=== PATIENT | female | born 1940 | race Caucasian/White ===

== ENCOUNTER 2018-02-17 11:38 | Outpatient (CLI) | payer MEDICARE, MEDICAID ==
--- NOTE | 2018-02-17 13:19 | Ultrasound Report ---
Reason: IT BAND SYNDROME,RIGHT,RIGHT LEG PAIN Procedure Date: 02/17/2018 Accession Number: [id number] / [id number] Procedure: US - Duplex Ext Veins Right CPT Code: FULL RESULT: EXAM: RIGHT LOWER EXTREMITY VENOUS ULTRASOUND EXAM DATE: 02/17/2018 12:34 PM. CLINICAL HISTORY: IT BAND SYNDROME,RIGHT,RIGHT LEG PAIN. COMPARISON: None. TECHNIQUE: Real-time sonographic vascular imaging was performed by the crate tier through the lower extremity utilizing both color-flow and Doppler spectral analysis. Multiple visitor services representative static images were saved for review. FINDINGS: Common Femoral Vein (CFV): Normal. CFV-GSV Junction: Normal. Profunda Femoral Vein (PFV): Normal. Femoral Vein (FV) Prox: Normal. Femoral Vein (FV) Mid: Normal. Femoral Vein (FV) Dist: Normal. Popliteal Vein: Normal. Posterior Tibial Veins: Normal. Peroneal Veins: Normal. Contralateral Side CFV: Normal. Other: None. IMPRESSION: No evidence for right lower extremity deep venous thrombosis. [facility] The call report notification system was initiated by Dr. Pietro Hughes at 12:50 hrs on 02/17/18. The above findings were discussed with Dr. Jenkins by Dr. Pietro Hughes at 13:18 hrs on 02/17/18.
== END 2018-02-17 11:39 | disposition home or self-care (01) ==
LOC: DI 11:38
PROVIDERS: ATTEND Internal Medicine
DX: M76.31 Iliotibial band syndrome, right leg (principal); M79.604 Pain in right leg; I83.93 Asymptomatic varicose veins of bilateral lower extremities

== ENCOUNTER 2021-12-30 14:01 | Outpatient (CLI) | payer MEDICARE, OTHER, MEDICAID ==
[2021-12-30 17:50] LABS: BASOPHILS % (AUTO) 1.1 %; EOSINOPHILS # (AUTO) 0.1 10^3/uL (0.0-0.7); EOSINOPHILS % (AUTO) 1.4 %; HCT - HEMATOCRIT 43.8 % (37.0-47.0); HGB - HEMOGLOBIN 14.3 g/dL (12.0-16.0); LYMPHOCYTES # (AUTO) 1.4 10^3/uL (1.5-3.5); MEAN CORPUSCULAR HEMOGLOBIN 29.5 pg (27.0-31.0); MEAN CORPUSCULAR HGB CONC 32.6 g/dL (32.0-36.0); MEAN CORPUSCULAR VOLUME 90.3 fL (81.0-99.0); MEAN PLATELET VOLUME 9.6 fL (7.9-10.8); MONOCYTES # (AUTO) 0.3 10^3/uL (0.0-1.0); MONOCYTES % (AUTO) 7.4 %; NEUTROPHILS # (AUTO) 1.9 10^3/uL (1.5-6.6); NEUTROPHILS % (AUTO) 53.1 %; PLT - PLATELET COUNT 240 10^3/uL (130-450); RED BLOOD COUNT 4.85 10^6/uL (4.20-5.40); RED CELL DISTRIBUTION WIDTH 12.3 % (12.0-15.0); WHITE BLOOD COUNT 3.7 x10^3/uL (4.8-10.8)
== END 2021-12-30 14:02 | disposition home or self-care (01) ==
LOC: LAB.N 14:01
DX: D72.819 Decreased white blood cell count, unspecified (principal)
CPT/HCPCS: 36415; 85025

== ENCOUNTER 2023-03-20 08:00 | Outpatient (CLI) | payer MEDICARE, OTHER, MEDICAID ==
[2023-03-20 21:22] LABS: BASOPHILS % (AUTO) 0.7 %; EOSINOPHILS # (AUTO) 0.1 10^3/uL (0.0-0.7); EOSINOPHILS % (AUTO) 1.7 %; HCT - HEMATOCRIT 39.2 % (37.0-47.0); HGB - HEMOGLOBIN 12.6 g/dL (12.0-16.0); LYMPHOCYTES # (AUTO) 1.1 10^3/uL (1.5-3.5); LYMPHOCYTES % (AUTO) 20.9 %; MEAN CORPUSCULAR HEMOGLOBIN 29.5 pg (27.0-31.0); MEAN CORPUSCULAR HGB CONC 32.1 g/dL (32.0-36.0); MEAN CORPUSCULAR VOLUME 91.8 fL (81.0-99.0); MEAN PLATELET VOLUME 9.4 fL (7.9-10.8); MONOCYTES # (AUTO) 0.4 10^3/uL (0.0-1.0); MONOCYTES % (AUTO) 8.2 %; NEUTROPHILS # (AUTO) 3.7 10^3/uL (1.5-6.6); NEUTROPHILS % (AUTO) 68.1 %; PLT - PLATELET COUNT 285 10^3/uL (130-450); RED BLOOD COUNT 4.27 10^6/uL (4.20-5.40); RED CELL DISTRIBUTION WIDTH 11.9 % (12.0-15.0); WHITE BLOOD COUNT 5.4 x10^3/uL (4.8-10.8)
[2023-03-20 21:34] LABS: ALBUMIN 3.9 g/dL (3.2-5.5); ALBUMIN/GLOBULIN RATIO 1.2 (1.0-2.2); BILIRUBIN,TOTAL 0.4 mg/dL (0.2-1.0); CALCIUM 9.6 mg/dL (8.5-10.3); CREATININE 0.8 mg/dL (0.6-1.3); MAGNESIUM 1.9 mg/dL (1.7-2.3); POTASSIUM 4.3 mmol/L (3.5-4.5); TOTAL PROTEIN 7.1 g/dL (6.4-8.9)
[2023-03-20 21:46] LABS: THYROID STIMULATING HORMONE 1.71 uIU/mL (0.34-5.60)
== END 2023-03-20 23:59 | disposition home or self-care (01) ==
LOC: LAB.N 08:00
PROVIDERS: ATTEND Emergency Medicine
DX: R55 Syncope and collapse (principal)
CPT/HCPCS: 36415; 80053; 83735; 84443; 85025

== ENCOUNTER 2023-11-30 13:16 | Emergency (ER) | payer MEDICARE, OTHER ==
--- NOTE | 2023-11-30 15:08 | ED Physician Documentation ---
History of Present Illness - Stated complaint Stated Complaint: MEMORY LOSS,TINGLY ARMS - Chief complaint Chief Complaint: Neuro - Additonal information Additional information: 83-year-old female presents emergency department requesting an MRI. Patient denies any past medical history she is not taking medication for anything every day. She says on Monday while she was in [place] she started to experience some memory issues and right arm tingling. She went to the emergency department in [place] and had a full workup and evaluation including a CT scan and all was found to be unremarkable they told her to have an MRI complete within the next week and so she said that she is coming into the emergency department now that she is back on [facility] which is her home for further evaluation MRI. She is reach out to her primary care provider who has already ordered the MRI but said that she wanted to make sure that it got done sooner rather than later which is why she is coming into the emergency department. All neurological symptoms have almost entirely fully resolved. PD PAST MEDICAL HISTORY - Past Medical History Past Medical History: No - Past Surgical History Past Surgical History: Yes - Present Medications Home Medications: Ambulatory Orders Medication Instructions Recorded Confirmed Atorvastatin [Lipitor] 40 mg PO QPM 14 Days #28 tablet 11/30/23 - Allergies Allergies/Adverse Reactions: Allergies Allergy/AdvReac Type Severity Reaction Status Date / Time No Known Drug Allergies Allergy Verified 11/30/23 13:23 - Social History Does the pt smoke?: No Smoking Status: Never smoker Does the pt drink ETOH?: Yes Does the pt have substance abuse?: No - Immunizations Immunizations are current?: No Immunizations: TDAP >10years/unknown - POLST Patient has POLST: No PD ED PE NORMAL - Vitals Vital signs reviewed: Yes - General General: Alert and oriented X 3, No acute distress, Well developed/nourished - HEENT HEENT: Atraumatic, PERRL - Neck Neck: Supple, no meningeal sign, No bony TTP - Cardiac Cardiac: RRR - Respiratory Respiratory: No respiratory distress - Abdomen Abdomen: Normal bowel sounds - Back Back: No CVA TTP - Derm Derm: Normal color, Warm and dry - Extremities Extremities: No edema, No calf tenderness / cord - Neuro Neuro: Alert and oriented X 3, technical intern 2-12 intact, No motor deficit, No sensory deficit, Normal speech Eye Opening: Spontaneous Motor: Obeys Commands Verbal: Oriented GCS Score: 15 - Psych Psych: Normal mood Results - Vitals Vitals: Vital Signs - 24 hr 11/30/23 11/30/23 13:23 15:18 Temperature 36.7 C 36.5 C Heart Rate 81 80 Respiratory 16 16 Rate Blood Pressure 142/68 H 138/66 H O2 Saturation 99 100 Oxygen O2 Source Room air PD Medical Decision Making - ED course ED course: I informed the patient that unfortunately we do not do nonemergent MRI scans in the emergency department. Given that her symptoms have significantly improved if not fully resolved and she already has an MRI scheduled outpatient I do not believe that patient needs an emergent MRI. She was given a prescription for atorvastatin to preferred pharmacy and told if she did have a stroke this could be helpful to get started on this medication until she is able to follow-up with her primary care provider and await the MRI results. She is already taking a daily baby aspirin which she was not taking prior to her strokelike symptoms that she had happen on Monday. Return precautions given all questions answered patient safe for discharge at this time. Departure - Departure Disposition: 01 Home, Self Care Clinical Impression: Patient request for diagnostic testing, Transient amnesia Instructions: Atorvastatin tablets Prescriptions: Atorvastatin [Lipitor] 40 mg PO QPM 14 Days #28 tablet Comments: Thank you for trusting us with your care. As we discussed we unfortunately do not do nonemergent MRIs in the emergency department. It sounds like you are doing a great job getting the ball rolling with following up with your primary care provider to get these outpatient test done I have sent a prescription about atorvastatin to your preferred pharmacy you can pick this up today and start taking this tonight. If you have new or worsening neurological symptoms that could be related to a stroke such as weakness on one side your body, worsening confusion, slurred speech any other concerning him neurological symptoms please come back to the emergency department for further evaluation. Forms: PCP List Discharge Date/Time: 11/30/23 15:18
[2023-11-30 15:28] VITALS: BP 138/66; O2SAT 100
== END 2023-11-30 15:18 | disposition home or self-care (01) ==
LOC: ED 13:16
DX: R20.2 Paresthesia of skin (principal); R41.3 Other amnesia
CPT/HCPCS: 99282; 99283

== ENCOUNTER 2023-12-05 13:06 | Outpatient (CLI) | payer MEDICARE, OTHER ==
[~2023-12-05 13:06] MED LIST: GADOTERATE MEGLUMINE 10 MMOL/20 ML VIAL ONE
[2023-12-05] MEDS: GADOTERATE MEGLUMINE 10 MMOL/20 ML VIAL IVP ONE (13:42)
--- NOTE | 2023-12-05 16:41 | MRI Report ---
PROCEDURE: Brain W/WO INDICATIONS: MENTAL STATUS CHANGE TECHNIQUE: Multiplanar multisequential MR images of the brain were obtained before and after intrave nous contrast administration. COMPARISON: None. FINDINGS: CSF spaces: Basal cisterns are patent. No extra-axial fluid collections. Ventricles are normal in size and shape. Brain: No midline shift. No intracranial bleeds or masses. No abnormal intracranial enhancement. The brainstem appears normal. Diffusion-weighted images demonstrate no acute infarct. Normal intrav ascular flow voids are present. Small tangle of vessels in the deep white matter in the high right frontal precentral gyrus associate d with a transcortical scrap collector vein extending to the superficial venous system. Additional adjacent to the small focus of old blood products Skull and face: Calvarial marrow is normal in signal. Orbits appear normal. Bilateral intraocular l ens replacements noted. Sinuses: Sinuses and mastoids appear clear. IMPRESSION: Mild atrophy and white matter chronic ischemic change without acute infarct, acute hemorrhage or mass lesion. 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
== END 2023-12-05 13:07 | disposition home or self-care (01) ==
LOC: DI 13:06
PROVIDERS: ATTEND Student in an Organized Health Care Education/Training Program
DX: R41.0 Disorientation, unspecified (principal); G31.89 Other specified degenerative diseases of nervous system; I67.82 Cerebral ischemia
CPT/HCPCS: 70553; A9575